=== PATIENT | female | born 1985 | race Caucasian/White ===

== ENCOUNTER 2017-01-24 18:54 | Emergency (ER) | payer BC ==
[~2017-01-24] VITALS: Ht 165.1 cm; Wt 77.1 kg
[2017-01-24] MEDS ORDERED: CLARITIN10 MG PO (19:17)
== END 2017-01-24 20:45 | disposition short-term general hospital (02) ==
LOC: ER 18:54
DX: B34.9 Viral infection, unspecified (principal); Z88.0 Allergy status to penicillin; Z88.1 Allergy status to other antibiotic agents